=== PATIENT | female | born 1940 | race Caucasian/White ===

== ENCOUNTER 2017-11-15 16:28 | Emergency (ER) | payer MEDICARE, BC ==
[~2017-11-15] VITALS: Ht 152.4 cm; Wt 44.9 kg
--- NOTE | 2017-11-15 17:22 | NUR ---
Pt was triaged, there are no ER beds available at this time. Pt assisted to ER waiting room.
[2017-11-15] MEDS ORDERED: ESTRADIOL PATCH (17:36)
[2017-11-15] MEDS ORDERED: CLON0.1T PO (17:36)
[2017-11-15] MEDS ORDERED: ROSU5TAB PO (17:36)
[2017-11-15] MEDS ORDERED: SYNTHROID (17:36)
[2017-11-15] MEDS ORDERED: ASPI81TA31 PO (17:36)
[2017-11-15] MEDS ORDERED: TRAZODONE (17:36)
[2017-11-15] MEDS ORDERED: AMLODIPINE (17:36)
--- NOTE | 2017-11-15 18:34 | NUR ---
Pt placed in room 1b for eval.
[2017-11-15 20:09] VITALS: BP 138/73
--- NOTE | 2017-11-15 20:09 | NUR ---
Patient discharged to home in stable conditon. Written and verbal after care instructions given. Patient verbalizes understanding of instructions. 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
== END 2017-11-15 20:09 | disposition home or self-care (01) ==
LOC: ER 16:28
DX: S02.2XXA Fracture of nasal bones, initial encounter for closed fracture (principal); S80.211A Abrasion, right knee, initial encounter; I10 Essential (primary) hypertension; Z79.82 Long term (current) use of aspirin; E78.00 Pure hypercholesterolemia, unspecified; Z88.1 Allergy status to other antibiotic agents; Z88.8 Allergy status to other drugs, medicaments and biological substances; W18.30XA Fall on same level, unspecified, initial encounter; Y92.89 Other specified places as the place of occurrence of the external cause; Y93.89 Activity, other specified; Y99.8 Other external cause status
CPT/HCPCS: 70486; 73564; 99284; A4663